=== PATIENT | female | born 1980 | race Hispanic/Latino ===

== ENCOUNTER 2021-09-18 12:06 | Inpatient (IN) | payer OTHER ==
[~2021-09-18] VITALS: Ht 157.5 cm; Wt 99.8 kg
[2021-09-18 12:40] LABS: BASOPHILS % (AUTO) 0.8 % (0.0-5.0); EOSINOPHILS % (AUTO) 2.7 % (0.0-8.0); HEMATOCRIT 37.9 % (36-48); LYMPHOCYTES % (AUTO) 32.6 % (21.0-51.0); MEAN CORPUSCULAR HEMOGLOBIN 26.6 pg (27.0-33.0); MEAN CORPUSCULAR HGB CONC 32.2 g/dL (32.0-36.0); MEAN CORPUSCULAR VOLUME 82.8 fL (79-99); MONOCYTES % (AUTO) 7.5 % (3.0-13.0); NEUTROPHILS % (AUTO) 56.1 % (40.0-77.0); PLATELET COUNT (AUTO) 375 K/uL (130-400); RED BLOOD CELL COUNT(AUTO) 4.58 MIL/uL (4.00-5.50); RED CELL DISTRIBUTION WIDTH 14.3 % (11.0-15.5)
[2021-09-18 12:43] LABS: APPEARANCE,URINE Clear (CLEAR); BILIRUBIN,URINE Negative (NEGATIVE); COLOR,URINE Yellow (YELLOW); GLUCOSE, URINE (UA) Negative (NEGATIVE); KETONES,URINE Negative (NEGATIVE); LEUKOCYTE ESTERASE ,URINE Negative (NEGATIVE); NITRATE,URINE Negative (NEGATIVE); OCCULT BLOOD,URINE Negative (NEGATIVE); PH,URINE 6.5 (5.0-8.0); PROTEIN,URINE Negative (NEGATIVE); UROBILINOGEN,URINE 0.2 mg/dL (0.2-1.0)
[2021-09-18 12:48] LABS: CREATININE 0.6 mg/dL (0.5-1.5); POTASSIUM 3.4 mmol/L (3.5-5.1)
[2021-09-18 12:52] LABS: ALBUMIN 3.6 g/dL (3.5-5.0); BILIRUBIN,TOTAL 0.4 mg/dL (0.2-1.0); TOTAL PROTEIN, SERUM 8.1 g/dL (6.0-8.3)
[2021-09-18] MEDS ORDERED: ONDANSETRON 4MG INJ IVP ONE (13:00)
[2021-09-18] MEDS ORDERED: ONDANSETRON 4MG INJ ONE (13:24)
[2021-09-18 13:39] LABS: HCG,QUAL RESULT NEGATIVE (NEGATIVE)
[2021-09-18] MEDS ORDERED: DICYCLOMINE HCL 10 MG/5 ML ML PO ONE ×2 (14:00→14:27)
[2021-09-18] MEDS ORDERED: LIDOCAINE HCL 2% VISCOUS 15 ML UDCUP PO ONE (14:00)
[2021-09-18] MEDS ORDERED: FAMOTIDINE 20MG VIAL IV ONE ×2 (14:00→14:27)
[2021-09-18] MEDS ORDERED: MAG/ALUM/SIMETH 30 ML UDCUP PO ONE (14:00)
[2021-09-18] MEDS ORDERED: MAG/ALUM/SIMETH 30 ML UDCUP ONE (14:26)
[2021-09-18] MEDS ORDERED: LIDOCAINE HCL 2% VISCOUS 15 ML UDCUP ONE (14:26)
[2021-09-18] MEDS ORDERED: ZOSYN 3.375GM +NS 50ML IV SCH (15:30)
[2021-09-18] MEDS ORDERED: ACETAMINOPHEN 325 MG TAB PO PRN (17:00)
[2021-09-18] MEDS ORDERED: MORPHINE 2 MG SYG IV PRN (17:00)
[2021-09-18] MEDS ORDERED: ONDANSETRON 4MG INJ IV PRN (17:00)
[2021-09-18] MEDS: 0.9%NACL 1000ML 1,000 ML IV SCH (18:43)
[2021-09-18 18:44] LABS: INR 1.05 (0.85-1.15); PROTHROMBIN TIME 11.4 SEC (9.6-11.6)
[2021-09-18 18:46] LABS: PARTIAL THROMBOPLASTIN TIME 27.1 SEC (26.3-35.5)
[2021-09-18] MEDS: ZOSYN 3.375GM+NS 50ML 50 ML IV SCH (21:13)
[2021-09-19 00:25] VITALS: BP 128/75
[2021-09-19] MEDS ORDERED: LOSA50TA64 PO (00:53)
[2021-09-19] MEDS: 0.9%NACL 1000ML 1,000 ML IV SCH ×3 (02:47→23:41)
[2021-09-19 04:00] VITALS: BP 124/68
[2021-09-19] MEDS: ZOSYN 3.375GM+NS 50ML 50 ML IV SCH ×3 (05:14→21:01)
[2021-09-19 05:46] LABS: BASOPHILS % (AUTO) 0.7 % (0.0-5.0); EOSINOPHILS % (AUTO) 2.3 % (0.0-8.0); HEMATOCRIT 34.1 % (36-48); LYMPHOCYTES % (AUTO) 27.5 % (21.0-51.0); MEAN CORPUSCULAR HEMOGLOBIN 27.1 pg (27.0-33.0); MEAN CORPUSCULAR HGB CONC 33.4 g/dL (32.0-36.0); MONOCYTES % (AUTO) 7.6 % (3.0-13.0); NEUTROPHILS % (AUTO) 61.7 % (40.0-77.0); PLATELET COUNT (AUTO) 332 K/uL (130-400); RED BLOOD CELL COUNT(AUTO) 4.21 MIL/uL (4.00-5.50); RED CELL DISTRIBUTION WIDTH 14.5 % (11.0-15.5)
[2021-09-19 06:16] LABS: ALBUMIN 3.1 g/dL (3.5-5.0); BILIRUBIN,TOTAL 0.5 mg/dL (0.2-1.0); CREATININE 0.7 mg/dL (0.5-1.5); POTASSIUM 3.7 mmol/L (3.5-5.1); TOTAL PROTEIN, SERUM 6.9 g/dL (6.0-8.3)
[2021-09-19 06:50] LABS: ERYTHROCYTE SEDIMENTATION RATE 18 MM/HR (0-20)
[2021-09-19 08:00] VITALS: BP 128/78
[2021-09-19 11:29] VITALS: BP 121/67
[2021-09-19] MEDS: LOSARTAN 50 MG TABLET PO SCH (12:50)
[2021-09-19] MEDS: METOPROLOL TARTRATE 25 MG TAB PO SCH ×2 (12:50→21:01)
[2021-09-19] MEDS: ACETAMINOPHEN 325 MG TAB PO PRN (15:35)
[2021-09-19 16:00] VITALS: BP 117/63
[2021-09-19 20:00] VITALS: BP 108/65
[2021-09-20] VITALS (26 sets, daily range): BP systolic 102–161; BP diastolic 54–89
[2021-09-20] MEDS: ZOSYN 3.375GM+NS 50ML 50 ML IV SCH ×3 (04:52→21:17)
[2021-09-20 05:40] LABS: HEMATOCRIT 33.5 % (36-48); MEAN CORPUSCULAR HEMOGLOBIN 26.4 pg (27.0-33.0); MEAN CORPUSCULAR HGB CONC 31.6 g/dL (32.0-36.0); MEAN CORPUSCULAR VOLUME 83.3 fL (79-99); RED BLOOD CELL COUNT(AUTO) 4.02 MIL/uL (4.00-5.50); RED CELL DISTRIBUTION WIDTH 14.2 % (11.0-15.5); WHITE BLOOD COUNT (AUTO) 9.4 K/uL (4.8-10.8)
[2021-09-20 06:00] LABS: CREATININE 0.6 mg/dL (0.5-1.5); POTASSIUM 3.5 mmol/L (3.5-5.1)
[2021-09-20] MEDS: METOPROLOL TARTRATE 25 MG TAB PO SCH ×2 (08:26→21:17)
[2021-09-20] MEDS: LOSARTAN 50 MG TABLET PO SCH (08:26)
[2021-09-20] MEDS ORDERED: SUCCINYLCHOLINE 200MG/10ML SYR ONE (08:46)
[2021-09-20] MEDS ORDERED: LIDOCAINE PF 100MG/5ML (2%) SYRINGE 5ML ONE (08:46)
[2021-09-20] MEDS ORDERED: SUCCINYLCHOLINE CHLORIDE 20 MG/ML 10 ML VIAL ONE (08:46)
[2021-09-20] MEDS ORDERED: ONDANSETRON 4MG INJ ONE ×2 (08:46→12:46)
[2021-09-20] MEDS ORDERED: GLYCOPYRROLATE 1 MG/5 ML SYRINGE ONE (08:46)
[2021-09-20] MEDS ORDERED: DEXAMETHASONE SOD PHOSPHATE 10MG/ML 1ML VIAL ONE (08:46)
[2021-09-20] MEDS ORDERED: MIDAZOLAM HCL 1 MG/ML 2ML VIAL ONE (08:47)
[2021-09-20] MEDS ORDERED: NEOSTIGMINE 5MG/5ML SYR IV ONE (08:47)
[2021-09-20] MEDS ORDERED: FENTANYL CITRATE PF 50 MCG/1 ML 2ML VIAL ONE ×3 (08:47→11:04)
[2021-09-20] MEDS ORDERED: ROCURONIUM 10MG/1ML SYR 10 MG/ML ML ONE ×2 (08:47→11:04)
[2021-09-20] MEDS ORDERED: PROPOFOL 10 MG/ML 20ML VIAL IV ONE (08:47)
[2021-09-20] MEDS ORDERED: LIDOCAINE HCL 1% MDV 50ML VIAL ONE (08:59)
[2021-09-20] MEDS ORDERED: BUPIVACAINE/PF 0.5% 30ML VIAL ONE (08:59)
[2021-09-20] MEDS ORDERED: SUGAMMADEX SODIUM 200 MG/2 ML VIAL IV ONE (11:47)
[2021-09-20] MEDS ORDERED: MEPERIDINE-PF 25 MG/ML SYG ONE ×2 (11:55→12:27)
[2021-09-20] MEDS ORDERED: KETOROLAC 30MG VIAL (30MG/ML) ONE (12:27)
[2021-09-20] MEDS ORDERED: METOCLOPRAMIDE 10 MG/2 ML VIAL ONE (12:46)
[2021-09-20] MEDS: 0.9%NACL 1000ML 1,000 ML IV SCH (21:18)
[2021-09-21] VITALS: BP 134/71
[2021-09-21] MEDS: ACETAMINOPHEN 325 MG TAB PO PRN (03:27)
[2021-09-21 03:47] LABS: BASOPHILS % (AUTO) 0.1 % (0.0-5.0); HEMATOCRIT 32.2 % (36-48); LYMPHOCYTES % (AUTO) 12.3 % (21.0-51.0); MEAN CORPUSCULAR HGB CONC 33.5 g/dL (32.0-36.0); MEAN CORPUSCULAR VOLUME 80.5 fL (79-99); MONOCYTES % (AUTO) 5.3 % (3.0-13.0); NEUTROPHILS % (AUTO) 82.1 % (40.0-77.0); PLATELET COUNT (AUTO) 358 K/uL (130-400); RED CELL DISTRIBUTION WIDTH 13.8 % (11.0-15.5); WHITE BLOOD COUNT (AUTO) 13.3 K/uL (4.8-10.8)
[2021-09-21 04:00] VITALS: BP 128/74
[2021-09-21 04:01] LABS: ALBUMIN 3.3 g/dL (3.5-5.0); BILIRUBIN,TOTAL 0.4 mg/dL (0.2-1.0); CREATININE 0.6 mg/dL (0.5-1.5); MAGNESIUM 1.9 mg/dL (1.80-2.40); POTASSIUM 3.8 mmol/L (3.5-5.1); TOTAL PROTEIN, SERUM 7.7 g/dL (6.0-8.3)
[2021-09-21] MEDS: ZOSYN 3.375GM+NS 50ML 50 ML IV SCH (04:27)
[2021-09-21] MEDS: 0.9%NACL 1000ML 1,000 ML IV SCH (04:41)
[2021-09-21] MEDS ORDERED: METO25 PO (06:33)
[2021-09-21 08:00] VITALS: BP 143/88
[2021-09-21] MEDS ORDERED: LACTULOSE 20 GM/30 ML UDCUP PO SCH (08:30)
[2021-09-21] MEDS: LOSARTAN 50 MG TABLET PO SCH (10:15)
[2021-09-21] MEDS: METOPROLOL TARTRATE 25 MG TAB PO SCH (10:15)
== END 2021-09-21 12:40 | disposition home or self-care (01) | DRG 418 ==
LOC: EDH 12:06 → EDHIP 16:53 → 3DH 09-19 00:01
PROVIDERS: ADMIT Hospitalist; ATTEND Hospitalist
PROC: 0FT44ZZ Resection of Gallbladder, Percutaneous Endoscopic Approach (ICD-10-PCS; principal; 2021-09-20 10:05)
DX: K80.00 Calculus of gallbladder with acute cholecystitis without obstruction (principal); Z68.41 Body mass index [BMI] 40.0-44.9, adult; E66.9 Obesity, unspecified; Z20.822 Contact with and (suspected) exposure to COVID-19; I10 Essential (primary) hypertension; G43.909 Migraine, unspecified, not intractable, without status migrainosus; K66.0 Peritoneal adhesions (postprocedural) (postinfection)
CPT/HCPCS: 36415; 76705; 80048; 80053; 81003; 81025; 83690; 83735; 84145; 85025; 85027; 85610; 85651; 85730; 87635; G0378; J0330; J1100; J1885; J2001; J2175; J2250; J2405; J2543; J2704; J2710; J2765; J3010; J3490; J7030

== ENCOUNTER 2023-07-27 10:09 | Emergency (ER) | payer OTHER ==
[~2023-07-27] VITALS: Ht 157.5 cm; Wt 103.0 kg
[~2023-07-27 10:09] MED LIST: LOSA50TA64 PO; METO25 PO
[2023-07-27] MEDS ORDERED: IBUP-2077 PO (11:39)
[2023-07-27] MEDS ORDERED: CYCL-309 PO (11:39)
[2023-07-27] MEDS: KETOROLAC 60 MG VIAL (30MG/ML) IM ONE (13:00)
[2023-07-27 13:19] VITALS: BP 151/86; PULSE 72; RESP 14; O2SAT 98
== END 2023-07-27 13:22 | disposition home or self-care (01) ==
LOC: EDH 10:09
DX: S39.012A Strain of muscle, fascia and tendon of lower back, initial encounter (principal); E11.9 Type 2 diabetes mellitus without complications; M79.7 Fibromyalgia; I10 Essential (primary) hypertension; G43.909 Migraine, unspecified, not intractable, without status migrainosus; E66.9 Obesity, unspecified; Z68.41 Body mass index [BMI] 40.0-44.9, adult; Z90.49 Acquired absence of other specified parts of digestive tract; X58.XXXA Exposure to other specified factors, initial encounter; Y93.89 Activity, other specified; Y92.89 Other specified places as the place of occurrence of the external cause; Y99.8 Other external cause status
CPT/HCPCS: 99283; 96372; J1885

== ENCOUNTER 2024-12-15 12:40 | Emergency (ER) | payer OTHER ==
[~2024-12-15] VITALS: Ht 157.5 cm; Wt 99.8 kg
[~2024-12-15 12:40] MED LIST changes: +CYCL-309 PO; +IBUP-2077 PO
[2024-12-15 13:13] LABS: IMMATURE GRANULOCYTE ABSOLUTE 0.01 K/uL (0-1); NUCLEATED RED BLOOD CELLS 0.0 % (0.0-0.19); PLATELET COUNT (AUTO) 366 K/uL (130-400); RED BLOOD CELL COUNT(AUTO) 5.31 MIL/uL (4.00-5.50); RED CELL DISTRIBUTION WIDTH 14.0 % (11.0-15.5); WHITE BLOOD COUNT (AUTO) 9.2 K/uL (4.8-10.8)
[2024-12-15 13:21] LABS: CREATININE 0.7 mg/dL (0.5-1.0); GLOMERULAR FILTR. RATE CALC 111.0 mL/min (>90); GLUCOSE,RANDOM 100.0 mg/dL (70-105); SODIUM SERUM 141.0 mmol/L (136-145); UREA NITROGEN, BLOOD 11.0 mg/dL (7-18)
[2024-12-15 13:25] LABS: ASPARTATE AMINOTRANSFERASE 22.0 U/L (10-37); TOTAL PROTEIN, SERUM 8.7 g/dL (6.0-8.3)
--- NOTE | 2024-12-15 14:30 | EKG ---
[facility] Test Date: 2024-12-15 Test Time: 14:26:48 Pat Name: LAVON CALVIN Department: ED Room: Gender: F Rubber Process Hand: [id number] : 1980 Requested By: GRISEL THOMPSON Order Number: [id number] Reading MD: Gerald Marks Measurements Intervals [place] Rate: 81 P: 10 [place]: 147 QRS: 5 QRSD: 95 T: 23 QT: 387 QTc: 450 Interpretive Statements Sinus rhythm No previous ECG available for comparison Electronically Signed On 12-16-2024 10:33:29 CDT by Gerald Marks Please click the below link to view image of tracing.
[2024-12-15] MEDS: LACTATED RINGERS 1000ML 1,000 ML IV ONE (14:31)
[2024-12-15 14:39] LABS: ADD UA MICROSCOPIC YES; APPEARANCE,URINE HAZY (CLEAR); GLUCOSE, URINE (UA) NEGATIVE (NEGATIVE); LEUKOCYTE ESTERASE ,URINE NEGATIVE Leu/uL (NEGATIVE); NITRATE,URINE NEGATIVE (NEGATIVE); OCCULT BLOOD,URINE NEGATIVE (NEGATIVE)
[2024-12-15 14:41] LABS: SQUAMOUS EPITHELIAL CELL,UR FEW /HPF (0-2)
[2024-12-15] MEDS: LIDOCAINE HCL 2% VISCOUS 15 ML UDCUP PO ONE (15:01)
[2024-12-15] MEDS: DICYCLOMINE HCL 10 MG/5 ML ML PO ONE (15:01)
[2024-12-15] MEDS: MAG/ALUM/SIMETH 30 ML UDCUP PO ONE (15:01)
--- NOTE | 2024-12-15 15:53 | ERN ---
General Chief Complaint: Abdominal Pain Stated Complaint: ABDOMINAL PAIN Time Seen by MD: 12:49 Source: patient History of Present Illness Initial Comments Patient is a 44-year-old female coming in to be evaluated for epigastric discomfort. Patient states that the symptoms began yesterday shortly after eating. She has had these symptoms before she states it is well. No fever no chills no nausea no vomiting. Allergies: Coded Allergies: No Known Allergies (Unverified Allergy, Unknown, 09/18/21) Home Meds Active Scripts Ibuprofen (Ibuprofen 800 mg Tab) 800 Mg Tab, 800 MG PO Q8H PRN for fever or pain, #30 TAB 0 Refills Prov:SARA ARREDONDO OPERATIONS REPRESENTATIVE 07/27/23 Cyclobenzaprine HCl (Cyclobenzaprine HCl) 10 Mg Tablet, 10 MG PO TID for 5 Days, #15 TAB Prov:SARA ARREDONDO OPERATIONS REPRESENTATIVE 07/27/23 Metoprolol Tartrate (Lopressor) 25 Mg Tab, 25 MG PO BID for 30 Days, #60 TAB Prov:MICHAEL ARRIAGA OPERATIONS REPRESENTATIVE 09/21/21 Reported Medications Losartan Potassium (Losartan Potassium) 50 Mg Tablet, 50 MG PO DAILY, TAB 09/19/21 Past Medical History Past Medical History: Diabetes-Type II, Fibromyalgia, Hypertension, Migraines Medical History Other: Obesity Past Surgical History: Cholecystectomy Family History Family History: Negative Social History Social History: Negative Female( History) History: Not Applicable LMP: Nov 26, 2024 ROS Dictation CONSTITUTIONAL: No chills, no fever, no weakness, no diaphoresis, no malaise. HEAD/FACE: No signs of trauma. EENT: No eye pain, no blurred vision, no tearing, no double vision, no ear pain, no ear discharge, no nose pain, no nasal congestion, no throat pain, no throat swelling, no mouth pain. RESPIRATORY: No cough, no orthopnea, no SOB, no stridor, no wheezing. CARDIOVASCULAR: No chest pain, no edema, no palpitations, no syncope. GASTROINTESTINAL/ABDOMINAL: abdominal pain, no constipation, no diarrhea, no nausea, no vomiting. GENITOURINARY: No abnormal discharge, no dysuria, no frequent urination, no hematuria. No complaints of pain in the genitals. MUSCULOSKELETAL: No back pain, no gout, no joint pain, no joint swelling, no muscle pain, no muscle stiffness, no neck pain. INTEGUMENTARY: No change in color, no change in hair/nails, no dryness, no lesion, no lumps, no rash. NEUROLOGICAL/PSYCH: No anxiety, not depressed, no emotional problem, no headache, no numbness, no pre-existing deficit, no history of seizures, no tremors, no weakness. HEMATOLOGIC/LYMPHATIC: Not anemic, no history of blood clots, no apparent bleeding, no bruising, glands not swollen. All Systems Negative, Except as Noted. Physical Exam Physical Exam Dictation VITAL SIGNS: Reviewed. GENERAL APPEARANCE: Alert, oriented x3, no acute distress, obese. HEAD AND FACE: Non-traumatic. EYES: PERRL, pink conjunctivas, eyelid no trauma, anterior chamber clear. EARS: Pinnas intact and no signs of trauma or erythema. Ear canals clear and no discharge. TMs no erythema. NOSE: No discharge, no bleeding. OROPHARYNX: Mouth normal, teeth no caries, tongue pink. Pharynx clear, no erythema. Tonsils no exudates, no abscesses noted. Mucous membrane moist. NECK: Supple, non-tender, no thyromegaly, no masses, no JVD, no bruits. BREAST: Deferred. CHEST: No tenderness, no crepitus, no paradoxical movement, no retractions. LUNGS: Clear, well-ventilated, symmetric, no rales, no wheezing, no rhonchi, no stridor, good breath sounds bilaterally. HEART: Regular rate, regular rhythm, no murmur, no gallops. VASCULAR: No peripheral edema. ABDOMEN: Soft, positive bowel sounds, nondistended, no guarding, tender, no rebound, no masses no hepatomegaly, no splenomegaly, no Tate's sign, no hernias. RECTAL: Deferred. GENITAL: Deferred. NEUROLOGICAL: Normal speech, gross motor function intact, gross sensory function intact. MUSCULOSKELETAL: Neck nontender, full range of motion, back nontender, full range of motion. EXTREMITIES: Nontender, full range of motion. SKIN: Color pink, dry, no turgor, no rash, no lacerations, no abrasions, no contusions. LYMPHATICS: Deferred. Results Laboratory and Microbiology Lab and Micro Result Laboratory Tests Test 12/15/24 13:09 12/15/24 14:24 White Blood Count 9.2 K/uL (4.8-10.8) Red Blood Count 5.31 MIL/uL (4.00-5.50) Hemoglobin 14.4 g/dL (12.0-16.0) Hematocrit 44.0 % (36-48) Mean Corpuscular Volume 82.9 fL (79-99) Mean Corpuscular Hemoglobin 27.1 pg (27.0-33.0) Mean Corpuscular Hemoglobin Concent 32.7 g/dL (32.0-36.0) Red Cell Distribution Width 14.0 % (11.0-15.5) Platelet Count 366 K/uL (130-400) Mean Platelet Volume 9.8 fL (7.5-10.5) Immature Granulocyte % (Auto) 0.1 % (0-1) Neutrophils (%) (Auto) 58.6 % (40.0-77.0) Lymphocytes (%) (Auto) 29.6 % (21.0-51.0) Monocytes (%) (Auto) 9.7 % (3.0-13.0) Eosinophils (%) (Auto) 1.7 % (0.0-8.0) Basophils (%) (Auto) 0.3 % (0.0-5.0) Neutrophils # (Auto) 5.4 K/uL (1.8-7.7) Lymphocytes # (Auto) 2.7 K/uL (1.0-4.8) Monocytes # (Auto) 0.9 K/uL (0.1-1.0) Eosinophils # (Auto) 0.16 K/uL (0.00-0.70) Basophils # (Auto) 0.03 K/uL (0.00-0.20) Absolute Immature Granulocyte (auto 0.01 K/uL (0-1) Nucleated Red Blood Cells 0.0 % (0.0-0.19) Sodium Level 141 mmol/L (136-145) Potassium Level 3.5 mmol/L (3.5-5.1) Chloride Level 103 mmol/L (101-111) Carbon Dioxide Level 25 mmol/L (21-32) Blood Urea Nitrogen 11 mg/dL (7-18) Creatinine 0.7 mg/dL (0.5-1.0) Glomerular Filtration Rate Calc 111 mL/min (>90) Random Glucose 100 mg/dL (70-105) Total Calcium 9.3 mg/dL (8.5-10.1) Total Bilirubin 0.5 mg/dL (0.2-1.0) Aspartate Amino Transf (AST/SGOT) 22 U/L (10-37) Alanine Aminotransferase (ALT/SGPT) 30 U/L (12-78) Alkaline Phosphatase 101 U/L (50-136) Total Protein 8.7 g/dL (6.0-8.3) H Albumin 3.9 g/dL (3.5-5.0) Lipase 26 U/L (16-77) Urine Color YELLOW (YELLOW) Urine Appearance HAZY (CLEAR) Urine pH 6.0 (5.0-8.0) Urine Specific [place] 1.018 (1.001-1.031) Urine Protein 20 mg/dL (NEGATIVE) H Urine Glucose (UA) NEGATIVE mg/dL (NEGATIVE) Urine Ketones 5 mg/dL (NEGATIVE) H Urine Occult Blood NEGATIVE (NEGATIVE) Urine Nitrate NEGATIVE (NEGATIVE) Urine Bilirubin NEGATIVE mg/dL (NEGATIVE) Urine Urobilinogen 0.2 mg/dL (0.2-1.0) Urine Leukocyte Esterase NEGATIVE [place]way[place]/uL Urine RBC 0-1 /HPF (0-1) Urine WBC 0-1 /HPF (0-1) Urine Squamous Epithelial Cells FEW /HPF (0-2) Urine Bacteria RARE /HPF (None Seen) Labs Reviewed?: Yes EKG/XRAY/US/CT/MRI EKG Comment 12/15/2024 time 2:26 p.m. Ventricular rate 81 Sinus rhythm [place] [address] wave elevation or depression MDM MDM: Differential diagnosis: Abdominal pain, gastritis, GERD, NSTEMI, STEMI, Rationale: Tests considered and ordered secondary to shared decision making include: Previous outside records reviewed: Old ER visits. Risk of complication and/or morbidity or mortality of patient management: None Medications-Per medication reconciliation Need for hospitalization: Patient does not meet criteria for hospitalization. Patient is a 44-year-old female coming in to be evaluated for epigastric discomfort. Cardiac workup negative for acute findings. Patient received a GI cocktail as IV Protonix states he feels much better will be discharged in stable condition I did advised her appropriate follow up with PCP for long-term management of gastritis. ED Course Orders Procedure Category Date Status Time Cbc With Differential LAB 12/15/24 Complete 12:56 Comprehensive LAB 12/15/24 Complete Metabolic Panel 12:56 Urinalysis Profile LAB 12/15/24 Complete 12:56 12 Lead Ekg Tracing- EKG 12/15/24 Complete Technical 12:56 Lactated Ringers PHA 12/15/24 Complete 1000ml (Lactated 13:00 Ondansetron 4mg Inj PHA 12/15/24 Complete (Zofran 4mg Inj) 13:00 Pantoprazole 40mg Inj PHA 12/15/24 Complete (Protonix 40mg Inj 13:00 Lipase LAB 12/15/24 Complete 12:56 Lidocaine Hcl 2% PHA 12/15/24 Complete Viscous (Lidocaine Hcl 15:00 Mag/Alum/Simeth 30ml PHA 12/15/24 Complete (Maalox Plus 30ml) 15:00 Dicyclomine Hcl PHA 12/15/24 Complete (Bentyl 10mg/5ml 15:00 Current Medications Medications (Trade) Dose Ordered Sig/Abhijeet Route PRN Reason Start Time Stop Time Status Last Admin Dose Admin Al Hydroxide/Mg Hydroxide (MAALox PLUS 30ML) 30 ml ONCE ONCE PO 12/15/24 15:00 12/15/24 15:01 DC 12/15/24 15:01 Dicyclomine HCl (Bentyl 10mg/5ml Syrup) 10 mg ONCE ONCE PO 12/15/24 15:00 12/15/24 15:01 DC 12/15/24 15:01 Lactated Ringer's 1,000 ml @ 0 mls/hr ONCE ONCE IV 12/15/24 13:00 12/15/24 13:01 DC 12/15/24 14:31 Lidocaine HCl (Lidocaine HCl 2% Viscous) 10 ml ONCE ONCE PO 12/15/24 15:00 12/15/24 15:01 DC 12/15/24 15:01 Ondansetron HCl (zoFRAN 4MG INJ) 4 mg ONCE ONCE IVP 12/15/24 13:00 12/15/24 13:01 DC 12/15/24 14:31 Pantoprazole Sodium (PROTonix 40MG INJ) 40 mg ONCE ONCE IVP 12/15/24 13:00 12/15/24 13:01 DC 12/15/24 14:31 Vital Signs Date Time Temp Pulse Resp B/P (MAP) Pulse Ox O2 Delivery O2 Flow Rate FiO2 12/15/24 12:50 97.0 94 16 137/76 99 Room Air* 0 21 12/15/24 12:46 97.0 94 16 137/76 99 Room Air 0 DX & DISP Disposition: Discharge Departure Impression: Primary Impression: GERD (gastroesophageal reflux disease) Condition: Stable Scripts Pantoprazole Sodium (Protonix) 40 Mg Ectab 1 TAB PO DAILY for 30 Days, #30 TAB 0 Refills Prov: GRISEL THOMPSON MD 12/15/24 Additional Instructions: You have been reviewed in the emergency department at [facility] after presenting with chest pain. After considering your history, your risk factors, your EKG and your blood test troponins, have been found to be at very low risk less than (1 in 100) of having a major adverse cardiac event (like heart attack) in the near future. In the " low risk" group, the risks of doing further tests and treatment as the inpatient outweighs the benefits. In many patients in the low risk group for the test of any sort or unnecessary, however he should discuss this further with his general practitioner who will understand the medical and personal backgrounds better. Because we have never declared you" no risk" we would suggest. 1 returning for medical review if you have further episodes of chest pain/arm pain or other concerning symptoms like dizziness, collapse, palpitations or shortness of breath. 2. Following up with your local doctor who will consider the need for further testing and will also ensure that any modifiable risk factors you may have for heart disease are optimally managed. Patient will be discharged in stable condition at the moment discharge patient states , no chest pain Referrals: JD SALAS MD (PCP) Time of Disposition: 15:57 GRISEL THOMPSON MD Dec 15, 2024 15:53
[2024-12-15] MEDS ORDERED: PANT40TA55 PO (15:58)
[2024-12-15 16:32] VITALS: BP 114/69; PULSE 78; RESP 16; TEMP 98.1; O2SAT 98
== END 2024-12-15 16:40 | disposition home or self-care (01) ==
LOC: EDH 12:40
DX: K21.9 Gastro-esophageal reflux disease without esophagitis (principal); E11.9 Type 2 diabetes mellitus without complications; E66.9 Obesity, unspecified; I10 Essential (primary) hypertension; M79.7 Fibromyalgia; Z79.899 Other long term (current) drug therapy; Z90.49 Acquired absence of other specified parts of digestive tract
CPT/HCPCS: 99284; 96374; 96361; 96375; 80053; 83690; 85025; 81001; 36415; 93005; J7120; J2405; J2470